=== PATIENT | female | born 1970 | race Caucasian/White ===

== ENCOUNTER → 2017-04-25 | Outpatient (REF) ==
--- NOTE | 2017-04-25 14:18 | REP ---
Clinical: Pain and disability. Technique: AP, lateral, coned-down views of the lumbar spine. Findings: Three views of the lumbosacral spine demonstrate satisfactory alignment and lordosis without acute fracture / compression injury or subluxation. Minimal age-related degenerative changes include endplate sclerosis and subtle disc space narrowing at the L5-S1 and to a lesser extent L4-5 levels. Impression: Mild degenerative changes at the L4-5 and L5-S1 levels. No acute fracture / compression injury or subluxation. Signed by Clyde Ordoñez MD 04/25/2017 02:09 P
--- NOTE | 2017-04-25 14:26 | REP ---
Clinical: Pain and disability. Technique: AP, lateral, open mouth views of the cervical spine. Findings: Alignment and lordosis maintained. Vertebral bodies are intact. No acute fracture / compression injury or subluxation. No significant degenerative changes are appreciated. Impression: Age-appropriate cervical spine radiographs. Signed by Clyde Ordoñez MD 04/25/2017 02:18 P
== END ==
LOC: M SMT 13:00
PROVIDERS: ATTEND Internal Medicine
DX: M54.5 Low back pain (principal)